=== PATIENT | female | born 1990 | race Hispanic/Latino ===

== ENCOUNTER 2017-09-13 11:03 | Emergency (ER) | payer SELFPAY ==
[~2017-09-13 11:03] MED LIST: ISOVUE-370 76%-LOCM 1 ML ONE
[2017-09-13 12:19] LABS: #Eosinphils 0.1 thou/uL (0.0-0.7); #Lymphocytes 0.7 thou/uL (1.20-3.40); #Monocytes 0.5 thou/uL (0.11-0.59); %Eosinophils 0.5 % (0.0-10.0); %Lymphocytes 6.2 % (21.0-51.0); %Monocytes 4.1 % (0.0-10.0); %Neutrophils 89.3 % (42.0-75.0); Hemoglobin 11.6 g/dL (12.0-16.0); Mean Corpuscular HGB CONC 32.1 g/dL (32.0-36.0); Mean Corpuscular Hemoglobin 22.6 pg (27.0-31.0); Mean Corpuscular Volume 70.5 fl (81.0-99.0); Mean Platelet Volume 10.7 fL (7.4-10.4); Platelet Count 184 thou/uL (130-400); RBC Distribution Width 12.8 % (11.5-14.5); Red Blood Cell (RBC) Count 5.12 mill/uL (4.20-5.40); White Blood Cell (WBC) Count 11.3 thou/uL (4.8-10.8)
[2017-09-13 12:39] LABS: ALT (SGPT) 24 U/L (8-55); AST (SGOT) 21 U/L (5-34); Albumin 3.7 g/dL (3.5-5.0); Alkaline Phosphatase 59 U/L (40-150); Anion Gap 9 mmol/L (10-20); BUN (Urea Nitrogen) 14 mg/dL (7.0-18.7); Bilirubin, Total 0.5 mg/dL (0.2-1.2); Calc. Creatinine Clearance 0 mL/min (70-130); Calcium 9.5 mg/dL (7.8-10.44); Carbon Dioxide 25 mmol/L (22-29); Chloride 104 mmol/L (98-107); Estimated GFR-MDRD Greater than 90; Globulin 2.8 g/dL (2.4-3.5); Glucose 99 mg/dL (70-105); Lipase 17 U/L (8-78); Potassium 3.7 mmol/L (3.5-5.1); Protein, Total 6.5 g/dL (6.0-8.3); Sodium 134 mmol/L (136-145)
[2017-09-13 12:41] LABS: Hypochromia SLIGHT = 6-15 cells (100X) (0-5/hpf); MDiff Complete? YES; Microcytosis MODERATE=15-30 cells (100X) (0-5/hpf); PLT Morphology Comment Appears Adequate; Polychromasia SLIGHT = 2-3 cells (100X) (0-2/hpf)
[2017-09-13 12:47] LABS: Bilirubin Negative (Negative); Blood, Urine Negative (Negative); Clarity CLEAR (Clear); Glucose, Urine (Dipstick) Negative (Negative); Leukocyte Moderate (Negative); Nitrite Negative (Negative); Protein, Urine (Dipstick) Negative (Neg-Trace); Specific Gravity, Urine 1.022 (1.002-1.036); Urobilinogen 0.2 mg/dL (0.2-1.0)
[2017-09-13 12:50] LABS: Bacteria/HPF None Seen HPF (None Seen); Hyaline Casts/LPF 0-3 HYALINE CAST LPF (0-3 Hyaline); Pathc Cast-AUWi Flag 0.14 (0-2.49)
[2017-09-13 12:54] LABS: Pregnancy Test - Urine (BHCG) Negative (Negative); Pregu Control Background? CLEAR/WHITE (CLR/WHITE); Pregu Control Bar Appear? YES (CONTROL BAR); Specific Gravity 1.022 (1.002-1.036)
[2017-09-13] MEDS ORDERED: Ondansetron ODT 4 MG TAB ONE (14:08)
--- NOTE | 2017-09-13 15:31 | CT ---
CT ABDOMEN AND PELVIS WITH IV CONTRAST: Date: 09/13/17 HISTORY: Nausea, vomiting, and diarrhea. FINDINGS: The lung bases are clear. The liver, spleen, pancreas, adrenal glands, and kidneys are normal. No calcified gallstones are seen . No free air or lymphadenopathy seen in the abdomen or pelvis. A tiny amount of free fluid is noted in the pelvis. Uterus and ovaries are present. The small bowel loops are not abnormally dilated. Smal l bowel loops appear fluid-filled. No acute osseous abnormalities are seen. IMPRESSION: Findings are suspicious for enteritis. POS: [facility]
== END 2017-09-13 16:04 | disposition home or self-care (01) ==
LOC: ERS 11:03
DX: K52.9 Noninfective gastroenteritis and colitis, unspecified (principal)
CPT/HCPCS: 36415; 74177; 80053; 81003; 81015; 81025; 82274; 83630; 83690; 85025; 87045; 87046; 87081; 87086; 87449; 87899; 96360; Q0162

== ENCOUNTER 2018-01-23 11:28 | Emergency (ER) | payer SELFPAY ==
--- NOTE | 2018-01-23 12:33 | RAD ---
FRONTAL VIEW CHEST: INDICATION: Chest pain. COMPARISON: 05/12/2013. FINDINGS: There is no evidence of consolidation, effusion, or pneumothorax. Cardiac silhouette is accentuated, stable. IMPRESSION: No focal consolidation. POS: [facility]
--- NOTE | 2018-01-29 12:04 | EKG ---
Test Reason : Blood Pressure : / mmHG Vent. Rate : 095 BPM Atrial Rate : 095 BPM P-R Int : 110 ms QRS Dur : 080 ms QT Int : 350 ms P-R-T Axes : 028 057 013 degrees QTc Int : 439 ms Sinus rhythm with short NM Otherwise normal ECG Confirmed by MARISOL SULTANA, ADRIANA ([id number]), photographic editor DUSTIN OLIVO ([id number]) on 01/29/2018 12:03:39 PM Referred By: Confirmed By:ADRIANA DAMON MD
== END 2018-01-23 13:18 | disposition home or self-care (01) ==
LOC: ERS 11:28
DX: F43.9 Reaction to severe stress, unspecified (principal); R06.4 Hyperventilation; F41.9 Anxiety disorder, unspecified; F32.9 Major depressive disorder, single episode, unspecified
CPT/HCPCS: 71045; 93005

== ENCOUNTER 2018-06-30 11:56 | Outpatient (CLI) | payer OTHER ==
--- NOTE | 2018-06-30 14:54 | MRI ---
MRI LUMBAR SPINE WITHOUT CONTRAST: Date: 06/30/18 HISTORY: Traumatic spondylopathy, lumbar region. Patient fell down the stairs and hit her buttocks on the step s. Incident occurred on 05/19/18. Pain. COMPARISON: None. TECHNIQUE: A lumbar spine MRI is performed without intravenous Gadolinium administration. Multisequential, multi planar imaging is performed. FINDINGS: There are Type I and Type II Modic changes at the L5-S1 disc space level. 7.3 mm of anterolisthesis o f L5 upon S1. There are bilateral pars defects. No evidence of STIR hyperintensity to suggest an acut e process. There is overall appropriate signal intensity of the lumbar vertebra from L1 to L4. No rian dence of fracture. Symmetric signal intensity of the paraspinal muscles. Appropriate signal intensity of the visualized solid organs. Conus medullaris terminates at the mid T12 level. T12-L1: Adequate disc hydration. No significant central canal stenosis or foraminal narrowing. L1-L2: Adequate disc hydration. No significant central canal stenosis or foraminal narrowing. L2-L3: Adequate disc hydration. No significant central canal stenosis or foraminal narrowing. L3-L4: Adequate disc hydration. No significant central canal stenosis or foraminal narrowing. L4-L5: Adequate disc hydration. No significant central canal stenosis or foraminal narrowing. L5-S1: Desiccation with moderate loss of disc space height. There is generalized disc bulge along wi th bilateral facet hypertrophy. Minimal encroachment upon both subarticular zones without significant mass effect or obstruction of either traversing S1 nerve root. There is no significant stenosis of t he thecal sac. There is severe right and left foraminal narrowing due to posterior element hypertroph y and spondylolisthesis. IMPRESSION: Type I Modic changes at L5-S1. Grade I anterolisthesis of L5 upon S1 with associated severe bilateral foraminal narrowing. There are associated spondylitic changes involving the left and right facet at L5 without evidence of edema to suggest an acute pars fracture. Correlation made with a CT from September 2017 that demonstrates the pars defect at L5. POS: [facility]
== END 2018-06-30 11:57 | disposition home or self-care (01) ==
LOC: BICMRI 11:56
PROVIDERS: ATTEND Family Medicine
DX: M48.36 Traumatic spondylopathy, lumbar region (principal); S80.01XD Contusion of right knee, subsequent encounter; S80.02XD Contusion of left knee, subsequent encounter; M43.17 Spondylolisthesis, lumbosacral region; M48.07 Spinal stenosis, lumbosacral region
CPT/HCPCS: 72148

== ENCOUNTER 2018-12-29 15:22 | Emergency (ER) | payer SELFPAY ==
[2018-12-29] MEDS ORDERED: hydrOXYzine 25 MG TAB ONE (16:29)
[2018-12-29 16:31] LABS: #Eosinphils 0.2 thou/uL (0.0-0.7); #Lymphocytes 2.4 thou/uL (1.20-3.40); #Monocytes 0.7 thou/uL (0.11-0.59); #Neutrophils 9.2 thou/uL (1.40-6.50); %Basophils 0.1 % (0.0-1.0); %Eosinophils 1.7 % (0.0-10.0); %Lymphocytes 19.1 % (21.0-51.0); %Monocytes 5.6 % (0.0-10.0); %Neutrophils 73.4 % (42.0-75.0); Hemoglobin 11.8 g/dL (12.0-16.0); Mean Corpuscular HGB CONC 32.8 g/dL (32.0-36.0); Mean Corpuscular Hemoglobin 22.9 pg (27.0-31.0); Mean Corpuscular Volume 69.8 fL (78.0-98.0); Mean Platelet Volume 10.6 fL (7.4-10.4); Platelet Count 229 thou/uL (130-400); RBC Distribution Width 13.2 % (11.5-14.5); Red Blood Cell (RBC) Count 5.14 mill/uL (4.20-5.40); White Blood Cell (WBC) Count 12.5 thou/uL (4.8-10.8)
[2018-12-29 16:42] LABS: BHCG - Serum Negative (NEGATIVE); Pregs Control Background? CLEAR/WHITE (CLR/WHITE); Pregs Control Bar Appear? YES (CONTROL BAR)
[2018-12-29 16:53] LABS: ALT (SGPT) 23 U/L (8-55); AST (SGOT) 14 U/L (5-34); Albumin 4.2 g/dL (3.5-5.0); Alkaline Phosphatase 61 U/L (40-110); Anion Gap 9 mmol/L (10-20); BUN (Urea Nitrogen) 12 mg/dL (7.0-18.7); Bilirubin, Total 0.3 mg/dL (0.2-1.2); Calc. Creatinine Clearance 0 mL/min (70-130); Calcium 9.4 mg/dL (7.8-10.44); Carbon Dioxide 26 mmol/L (22-29); Chloride 107 mmol/L (98-107); Estimated GFR-MDRD 83; Globulin 3.8 g/dL (2.4-3.5); Glucose 72 mg/dL (70-105); Potassium 3.6 mmol/L (3.5-5.1); Sodium 138 mmol/L (136-145)
--- NOTE | 2018-12-29 16:55 | RAD ---
EXAM: CHEST ONE VIEW HISTORY: Chest pain and shortness of breath. COMPARISON: 01/23/2018 FINDINGS: The cardiac silhouette and pulmonary vasculature is within normal limits. The lungs are clear. The os seous structures are intact. IMPRESSION: No acute cardiopulmonary process.
[2018-12-29 16:56] LABS: Large Platelets SLIGHT; MDiff Complete? YES; Microcytosis MODERATE=15-30 cells (100X) (0-5/hpf); Ovalocytes SLIGHT = 2-5 cells (100X) (0-1/hpf); Platelet Morphology Comment Appears Adequate; Polychromasia SLIGHT = 2-3 cells (100X) (0-2/hpf); Stomatocytes SLIGHT = 2-5 cells (100X) (0-1/hpf)
--- NOTE | 2018-12-29 17:29 | CT ---
Exam: CT angiogram of the chest HISTORY: Chest pain. Shortness of breath COMPARISON: None TECHNIQUE: CT angiogram of the chest is performed in the axial plane. Three-dimensional reformatted i mages are submitted for interpretation FINDINGS: Mediastinum: No mass, lymphadenopathy or hematoma. HEART: Normal size. No significant pericardial fluid. Aorta: No aneurysm or dissection Upper solid abdominal viscera: No abnormality enhancement. Trachea and central bronchi: Patent Pleural spaces: No effusion Lung parenchyma: No masses or consolidation. Pneumothorax: None Osseous structures: No lytic or blastic lesions Pulmonary arteries: Adequate contrast opacification pulmonary arterial system to the level of segment al arteries. No filling defect to suggest pulmonary embolism IMPRESSION:No evidence of pulmonary artery embolism to the level of the segmental arteries.
[2018-12-29] MEDS ORDERED: ISOVUE-370 76%-LOCM 1 ML ONE (18:19)
[2018-12-29] MEDS ORDERED: Ketorolac Tromethamine 30 MG/ML VIAL ONE (19:13)
--- NOTE | 2018-12-29 19:48 | ULT ---
EXAM: Bilateral lower extremity venous ultrasound HISTORY: Shortness of breath. Chest pain. Recent travel. COMPARISON: None TECHNIQUE: Multiplanar grayscale and color Doppler images were obtained in a bilateral lower extremit y venous ultrasound. Spectral analysis of the Doppler waveforms were performed. FINDINGS: The bilateral common femoral vein, profunda femoral veins, superficial femoral veins, and p opliteal veins are normal in appearance without visible thrombus. These vessels demonstrate normal compression, flow, and augmentation. The bilateral posterior tibial veins, profunda femoral veins and greater saphenous veins are patent w ithout evidence of DVT. IMPRESSION: No evidence of DVT in the left or right lower extremity.
== END 2018-12-29 20:43 | disposition home or self-care (01) ==
LOC: ERS 15:22
DX: R07.89 Other chest pain (principal); F41.9 Anxiety disorder, unspecified; F32.9 Major depressive disorder, single episode, unspecified
CPT/HCPCS: 36415; 71045; 71275; 80053; 84484; 84703; 85025; 85379; 93005; 93970; 94760; 96361; 96374; J1885; Q9966

== ENCOUNTER 2019-07-28 10:16 | Outpatient (CLI) | payer MEDICAID ==
--- NOTE | 2019-07-28 11:08 | MMO ---
Bilateral MAMMO Bilat Diag DDI+RUMA. CLINICAL HISTORY: Patient is 29 years old and is seen for diagnostic exam and palpable abnormality in the right breast. The patient has no family history of breast cancer. The patient has no personal history of cancer. VIEWS: The views performed were: bilateral craniocaudal with tomosynthesis; bilateral mediolateral oblique; bilateral mediolateral oblique with tomosynthesis; and bilateral mediolateral with tomosynthesis. FILMS COMPARED: The present examination has been compared to a prior imaging study performed at [facility] on 07/28/2019. This study has been interpreted with the assistance of computer-aided detection. MAMMOGRAM FINDINGS: There are scattered fibroglandular densities. Finding 1: There are two intramammary lymph nodes seen in the upper-outer region of the left breast. There are no suspicious masses, suspicious calcifications, or new areas of architectural distortion. IMPRESSION: FINDING 1: INTRAMAMMARY LYMPH NODES IN THE LEFT BREAST ARE BENIGN. FINDING 2: FINDING IN THE RIGHT BREAST IS BENIGN. ULTRASOUND OF PALPABLE FINDING IS NORMAL. A ROUTINE FOLLOW-UP MAMMOGRAM AT AGE 38 IS RECOMMENDED. THE RESULTS OF THIS EXAM WERE SENT TO THE PATIENT. ACR BI-RADS Category 2 - Benign finding MAMMOGRAPHY NOTE: 1. A negative mammogram report should not delay a biopsy if a dominant of clinically suspicious mass is present. 2. Approximately 10% to 15% of breast cancers are not detected by mammography. 3. Adenosis and dense breasts may obscure an underlying neoplasm. Reported by: SIMI DELGADO MD Electonically Signed: [id number]
--- NOTE | 2019-07-28 12:36 | ULT ---
RIGHT BREAST ULTRASOUND LIMITED: Date: 07/28/2019 HISTORY: Patient presents with a palpable finding in the 10 o'clock region of the right breast. FINDINGS: This area of the right breast is evaluated with ultrasound. In particular, at 10 o'clock, 4.0 cm from the nipple, in the area of palpable concern, there is no evidence for solid or cystic mass. Somewhat heterogeneous glandular tissue. IMPRESSION: 1. Unremarkable right breast ultrasound. No evidence for abnormal ultrasound finding to account for the palpable finding. 2. BI-RADS Category 2 - Benign findings. Consider follow-up mammogram at age 35-40, depending upon risk. If the patient develops any new palpable finding, follow-up mammogram and ultrasound evaluation shoul d be considered at that time.
== END 2019-07-28 10:17 | disposition home or self-care (01) ==
LOC: BICMAMMO 10:16
PROVIDERS: ATTEND Nurse Practitioner Women's Health
DX: N63.10 Unspecified lump in the right breast, unspecified quadrant (principal)
CPT/HCPCS: 77066; G0279

== ENCOUNTER 2020-07-25 13:56 | Outpatient (CLI) | payer OTHER | END 2020-07-25 13:57 | disposition home or self-care (01) | LOC: DTY/OP 13:56 | PROVIDERS: ATTEND Surgery | DX: E66.01 Morbid (severe) obesity due to excess calories (principal); Z68.41 Body mass index [BMI] 40.0-44.9, adult; Z71.3 Dietary counseling and surveillance | CPT/HCPCS: 97802 ==

== ENCOUNTER 2021-04-01 16:48 | Outpatient (CLI) | payer OTHER | END 2021-04-01 16:49 | disposition home or self-care (01) | LOC: RAD 16:48 | PROVIDERS: ATTEND Family Medicine | DX: S99.921A Unspecified injury of right foot, initial encounter (principal); M79.644 Pain in right finger(s) ==

== ENCOUNTER 2021-09-24 19:00 | Outpatient (CLI) | payer BC, OTHER | END 2021-09-24 19:01 | disposition home or self-care (01) | LOC: SLEEPLAB 19:00 | PROVIDERS: ATTEND Psychiatry & Neurology Neurology | DX: G47.33 Obstructive sleep apnea (adult) (pediatric) (principal); R06.83 Snoring; G47.10 Hypersomnia, unspecified; E66.9 Obesity, unspecified; Z68.41 Body mass index [BMI] 40.0-44.9, adult | CPT/HCPCS: 95811 ==

== ENCOUNTER 2021-11-18 14:06 | Outpatient (CLI) | payer BC, OTHER | END 2021-11-18 14:07 | disposition home or self-care (01) | LOC: ULT 14:06 | PROVIDERS: ATTEND Family Medicine | DX: M79.661 Pain in right lower leg (principal) ==

== ENCOUNTER 2022-05-22 10:54 | Outpatient (CLI) | payer BC, OTHER | END 2022-05-22 10:55 | disposition home or self-care (01) | LOC: TBSIIMAG 10:54 | PROVIDERS: ATTEND Family Medicine | DX: M50.121 Cervical disc disorder at C4-C5 level with radiculopathy (principal) | CPT/HCPCS: 72141 ==

== ENCOUNTER 2022-05-26 21:02 | Emergency (ER) | payer BC, OTHER ==
[~2022-05-26 21:02] MED LIST changes: -ISOVUE-370 76%-LOCM 1 ML ONE; +Iopamidol-370 76% 500 ML 1 ML ONE
[2022-05-26] MEDS ORDERED: Ketorolac Tromethamine 30 MG/ML VIAL ONE (21:55)
[2022-05-26] MEDS ORDERED: Clindamycin/D5W 900 mg/50 ml Premix Bag ONE (21:56)
[2022-05-26 22:02] LABS: #Eosinphils 0.3 thou/uL (0.0-0.7); #Lymphocytes 3.1 thou/uL (1.20-3.40); #Monocytes 0.6 thou/uL (0.11-0.59); #Neutrophils 4.7 thou/uL (1.40-6.50); %Basophils 0.2 % (0.0-1.0); %Eosinophils 3.3 % (0.0-10.0); %Lymphocytes 35.4 % (21.0-51.0); %Monocytes 6.9 % (0.0-10.0); %Neutrophils 54.1 % (42.0-75.0); Hemoglobin 11.2 g/dL (12.0-16.0); Mean Corpuscular HGB CONC 33.3 g/dL (32.0-36.0); Mean Corpuscular Hemoglobin 23.7 pg (27.0-31.0); Mean Corpuscular Volume 71.2 fl (78.0-98.0); Mean Platelet Volume 9.8 fL (7.4-10.4); Platelet Count 217 10x3/uL (130-400); Red Blood Cell (RBC) Count 4.72 mill/uL (4.20-5.40); White Blood Cell (WBC) Count 8.7 10x3/uL (4.8-10.8)
[2022-05-26 22:20] LABS: BHCG - Serum Negative (NEGATIVE); Pregs Control Background? CLEAR/WHITE (CLR/WHITE); Pregs Control Bar Appear? YES (CONTROL BAR)
[2022-05-26 22:21] LABS: ALT (SGPT) 17 U/L (8-55); AST (SGOT) 21 U/L (5-34); Albumin 3.9 g/dL (3.5-5.0); Alkaline Phosphatase 67 U/L (40-110); Anion Gap 10 mmol/L (10-20); BUN (Urea Nitrogen) 14 mg/dL (7.0-18.7); Bilirubin, Total 0.2 mg/dL (0.2-1.2); Calc. Creatinine Clearance 0 mL/min (70-130); Calcium 8.9 mg/dL (7.8-10.44); Carbon Dioxide 24 mmol/L (22-29); Chloride 109 mmol/L (98-107); Estimated GFR 91; Globulin 3.5 g/dL (2.4-3.5); Glucose 102 mg/dL (70-105); Potassium 3.7 mmol/L (3.5-5.1); Protein, Total 7.4 g/dL (6.0-8.3); Sodium 139 mmol/L (136-145)
== END 2022-05-27 00:30 | disposition home or self-care (01) ==
LOC: ERS 21:02
DX: L03.211 Cellulitis of face (principal)
CPT/HCPCS: 36415; 70487; 80053; 84703; 85025; 96365; 96375; J1885; J3490; Q9967

== ENCOUNTER 2022-10-30 04:49 | Observation (INO) | payer BC, OTHER ==
[2022-10-30] MEDS ORDERED: Ondansetron PF 4 MG/2 ML Vial ONE ×2 (05:11→06:16)
[2022-10-30 05:30] LABS: #Monocytes 0.5 thou/uL (0.11-0.59); #Neutrophils 7.5 thou/uL (1.40-6.50); %Basophils 0.3 % (0.0-1.0); %Eosinophils 0.4 % (0.0-10.0); %Monocytes 4.5 % (0.0-10.0); %Neutrophils 74.7 % (42.0-75.0); Hemoglobin 11.6 g/dL (12.0-16.0); Mean Corpuscular HGB CONC 32.2 g/dL (32.0-36.0); Mean Corpuscular Hemoglobin 22.3 pg (27.0-31.0); Mean Corpuscular Volume 69.1 fl (78.0-98.0); Mean Platelet Volume 11.1 fL (7.4-10.4); Platelet Count 295 10x3/uL (130-400); RBC Distribution Width 14.5 % (11.5-14.5); Red Blood Cell (RBC) Count 5.21 mill/uL (4.20-5.40)
[2022-10-30 05:37] LABS: BHCG - Serum Negative (NEGATIVE); Pregs Control Background? CLEAR/WHITE (CLR/WHITE); Pregs Control Bar Appear? YES (CONTROL BAR)
[2022-10-30 05:56] LABS: Acetaminophen Less than 10 mcg/mL (10.0-30.0); Alcohol Less than 10.0 mg/dL (Less than 10); Magnesium 1.7 mg/dL (1.6-2.6); Salicylate Less than 8.0 mg/dL (15.0-30.0)
[2022-10-30 05:57] LABS: ALT (SGPT) 28 U/L (8-55); AST (SGOT) 25 U/L (5-34); Albumin 4.5 g/dL (3.5-5.0); Alkaline Phosphatase 70 U/L (40-110); Anion Gap 14 mmol/L (10-20); BUN (Urea Nitrogen) 6 mg/dL (7.0-18.7); Bilirubin, Total 0.5 mg/dL (0.2-1.2); Calc. Creatinine Clearance 0 mL/min (70-130); Calcium 9.6 mg/dL (7.8-10.44); Carbon Dioxide 21 mmol/L (22-29); Chloride 107 mmol/L (98-107); Estimated GFR 88; Globulin 3.7 g/dL (2.4-3.5); Glucose 134 mg/dL (70-105); Potassium 3.8 mmol/L (3.5-5.1); Protein, Total 8.2 g/dL (6.0-8.3); Sodium 138 mmol/L (136-145)
[2022-10-30 06:12] LABS: Delete Auto Diff?? NO
[2022-10-30 06:39] LABS: Amphetamine Detected (NotDetected); Barbiturates Screen Not Detected (NotDetected); Benzodiazepine Screen Detected (NotDetected); Cocaine Metabolite Screen Not Detected (NotDetected); Methadone Not Detected (NotDetected); Methamphetamine Not Detected (NotDetected); Opiate Screen Not Detected (NotDetected); Oxycodone Screen Not Detected (NotDetected); Phencyclidine (PCP) Not Detected (NotDetected); THC/Cannabinoid Screen Not Detected (NotDetected); Tricyclic Screen Not Detected (NotDetected)
[2022-10-30 07:00] LABS: CellaVision Operator ID LAB.GE; Large Platelets 3.8 % (0-5); Microcytosis SLIGHT = 6-15 cells HPF (0-5); Platelet Adequacy Comment Platelets Normal; Polychromasia SLIGHT = 2-3 cells HPF (0-2); Smudge Cells 3.8 %
[2022-10-30] MEDS ORDERED: Sodium Chloride 0.9% 1,000 ML IV SCH (08:00)
[2022-10-30] MEDS ORDERED: Ondansetron ODT 4 MG TAB PO PRN (08:53)
[2022-10-30] MEDS ORDERED: Ondansetron PF 4 MG/2 ML Vial IVP PRN ×2 (08:53→12:15)
[2022-10-30] MEDS ORDERED: Lorazepam 2 MG/ML VIAL SLOW IVP PRN (08:53)
[2022-10-30] MEDS ORDERED: Electrolyte Replacement Protocol 1 EACH FS SCH (09:00)
[2022-10-30] MEDS ORDERED: Magnesium 2 GM/50 ML(in water) 2 GM in Premix Bag 1 BAG IVPB SCH (09:15)
[2022-10-30] MEDS ORDERED: Electrolyte Replacement Protocol FS PRN (09:15)
[2022-10-30] MEDS: Sodium Chloride 0.9% 1,000 ML IV SCH ×2 (10:35→22:09)
[2022-10-30] MEDS: Famotidine/PF 20 mg/2ml Vial SLOW IVP SCH ×2 (10:45→22:10)
[2022-10-30 10:53] VITALS: BMI 41.1
[2022-10-30] MEDS ORDERED: Ondansetron ODT 4 MG TAB SL PRN (12:15)
[2022-10-30 22:53] LABS: Bacteria/HPF None Seen HPF (None Seen); Bilirubin Negative (Negative); Blood, Urine Negative (Negative); CAUTI Indications for Culture Alt mental st,lethar; Clarity Clear (Clear); Glucose, Urine (Dipstick) Normal (Negative); Ketone, Urine Negative (Negative); Leukocyte Negative Leu/uL (Negative); Nitrite Negative (Negative); Protein, Urine (Dipstick) Negative (Neg-Trace); RBC/HPF 0-3 HPF (0-3); Specific Gravity, Urine 1.006 (1.002-1.036); Squamous Epithelial 0-3 HPF (0-3); Urobilinogen Normal mg/dL (Less than 2); WBC/HPF 0-3 HPF (0-3)
[2022-10-30 23:24] LABS: Urine Culture Reflex No No
[2022-10-31 05:14] LABS: #Monocytes 0.6 thou/uL (0.11-0.59); #Neutrophils 4.2 thou/uL (1.40-6.50); %Basophils 0.3 % (0.0-1.0); %Eosinophils 0.1 % (0.0-10.0); %Lymphocytes 31.7 % (21.0-51.0); %Monocytes 8.1 % (0.0-10.0); %Neutrophils 59.5 % (42.0-75.0); Mean Corpuscular Volume 71.1 fl (78.0-98.0); Mean Platelet Volume 11.3 fL (7.4-10.4); Platelet Count 249 10x3/uL (130-400); RBC Distribution Width 14.7 % (11.5-14.5); Red Blood Cell (RBC) Count 4.54 mill/uL (4.20-5.40); White Blood Cell (WBC) Count 7.1 10x3/uL (4.8-10.8)
[2022-10-31 06:02] LABS: ALT (SGPT) 20 U/L (8-55); AST (SGOT) 16 U/L (5-34); Albumin 3.9 g/dL (3.5-5.0); Alkaline Phosphatase 60 U/L (40-110); Anion Gap 11 mmol/L (10-20); BUN (Urea Nitrogen) 6 mg/dL (7.0-18.7); Bilirubin, Total 0.5 mg/dL (0.2-1.2); Calc. Creatinine Clearance 166 mL/min (70-130); Calcium 8.4 mg/dL (7.8-10.44); Carbon Dioxide 23 mmol/L (22-29); Chloride 110 mmol/L (98-107); Estimated GFR 96; Globulin 3.1 g/dL (2.4-3.5); Glucose 89 mg/dL (70-105); Magnesium 2.1 mg/dL (1.6-2.6); Potassium 3.5 mmol/L (3.5-5.1); Sodium 140 mmol/L (136-145)
[2022-10-31] MEDS: Sodium Chloride 0.9% 1,000 ML IV SCH (07:20)
[2022-10-31] MEDS: Potassium Chloride 20 MEQ in Premix Bag 1 BAG IVPB SCH ×2 (10:55→10:56)
[2022-10-31] MEDS: Famotidine/PF 20 mg/2ml Vial SLOW IVP SCH ×2 (10:57→20:56)
[2022-10-31 21:41] VITALS: BP 122/79; TEMP 98.3
== END 2022-10-31 21:30 | disposition short-term general hospital (02) ==
LOC: ERS 04:49 → 2NO 06:47
PROVIDERS: ADMIT Internal Medicine; ATTEND Internal Medicine
DX: T43.222A Poisoning by selective serotonin reuptake inhibitors, intentional self-harm, initial encounter (principal); T43.292A Poisoning by other antidepressants, intentional self-harm, initial encounter; R11.2 Nausea with vomiting, unspecified; F41.8 Other specified anxiety disorders; Z91.010 Allergy to peanuts; Z88.6 Allergy status to analgesic agent; Z91.018 Allergy to other foods; Z87.891 Personal history of nicotine dependence; Z79.899 Other long term (current) drug therapy
CPT/HCPCS: 36415; 80053; 80306; 80307; 81001; 83735; 84703; 85025; 93005; 93010; 96374; 96375; 96376; G0378; J2405; J3475; J7050; Q0162; S0028

== ENCOUNTER 2022-12-03 15:06 | Outpatient (CLI) | payer BC, OTHER | END 2022-12-03 15:07 | disposition home or self-care (01) | LOC: BICMRI 15:06 | PROVIDERS: ATTEND Orthopaedic Surgery | DX: M25.531 Pain in right wrist (principal); S62.001S Unspecified fracture of navicular [scaphoid] bone of right wrist, sequela ==

== ENCOUNTER 2023-05-21 10:48 | Outpatient (CLI) | payer BC | END 2023-05-21 10:49 | disposition home or self-care (01) | LOC: BICULT 10:48 | PROVIDERS: ATTEND Family Medicine | DX: R22.1 Localized swelling, mass and lump, neck (principal); R59.0 Localized enlarged lymph nodes | CPT/HCPCS: 76536 ==